=== PATIENT | female | born 1955 | race Hispanic/Latino ===

== ENCOUNTER 2017-07-09 07:13 | Day surgery (SDC) | payer MEDICAID ==
[2017-07-09 08:04] LABS: Basophils % (Auto) 0.5 % (0.0-1.8); Eosinophils % (Auto) 2.3 % (0.0-4.3); Hematocrit 29.9 % (30.3-42.9); Hemoglobin 9.6 gm/dl (10.1-14.3); Mean Corpuscular HGB Conc 32 % (30-34); Platelet Count 219 K/mm3 (140-440); Red Blood Count 4.44 M/mm3 (3.65-5.03); Red Cell Distribution Width 14.2 % (13.2-15.2); White Blood Count 8.6 K/mm3 (4.5-11.0)
[2017-07-09 08:14] LABS: Mean Corpuscular Volume 67 fl (79-97)
[2017-07-09 08:15] LABS: Mean Corpuscular Hemoglobin 22 pg (28-32)
[2017-07-09 08:21] LABS: Partial Thromboplastin Time 37.8 Sec. (24.2-36.6)
[2017-07-09] MEDS ORDERED: VERSED IV ONE ×2 (11:49→13:00)
[2017-07-09] MEDS ORDERED: SUBLIMAZE ONE (11:49)
[2017-07-09] MEDS ORDERED: SUBLIMAZE IV ONE (13:00)
--- NOTE | 2017-07-09 13:23 | Short Stay Summary ---
Short Stay Documentation Date of service: 07/09/17 - History Principal diagnosis: Anemia Past Medical History: hypertension - Allergies and Medications Current Medications: Allergies No Known Allergies Allergy (Verified 03/19/15 10:27) Home Medications Medication Instructions Recorded Confirmed Last Taken Type Albuterol Sulfate [Proventil HFA] 1 - 2 puff IH Q4H PRN 05/19/14 07/09/17 History Ascorbic Acid [Vitamin C] 250 mg PO BID 05/19/14 07/09/17 07/08/17 History Aspirin [Aspirin BABY CHEW TAB] 81 mg PO QDAY 05/19/14 07/09/17 07/08/17 History Ca/D3/Mag Ox/Zinc/Exhibit Electrician/[place]/Bor 2 each PO QDAY 05/19/14 07/09/17 07/08/17 History [Caltrate 600+D Plus Tab Chew] Ferrous Gluconate [Ferrous 325 mg PO BID 05/19/14 07/09/17 07/08/17 History Gluconate 325 MG tab] Fluticasone/Salmeterol [Advair 1 puff IH BID 05/19/14 07/09/17 07/08/17 History Diskus 500-50 mcg] Levothyroxine [Synthroid] 50 mcg PO QAM 05/19/14 07/09/17 07/08/17 History Lisinopril 10 mg PO QDAY 05/19/14 07/09/17 07/08/17 History Loratadine [Claritin] 10 mg PO DAILY 05/19/14 07/09/17 07/08/17 History Montelukast [Singulair] 10 mg PO QPM 05/19/14 07/09/17 07/08/17 History Multivitamin [Multi-Vitamin Daily] 1 each PO QDAY 05/19/14 07/09/17 07/08/17 History Pregabalin [Lyrica] 75 mg PO QDAY 05/19/14 07/09/17 07/08/17 History FLUoxetine HCL [FLUoxetine] 20 mg PO DAILY 03/17/15 07/09/17 07/08/17 History 20mg Nitroglycerin [Nitrostat] 0.4 mg SL PRN PRN 03/17/15 07/09/17 02/17/15 History Omeprazole [PriLOSEC] 40 mg PO QDAY 03/17/15 07/09/17 07/08/17 History cloNIDine [Catapres] 0.1 mg PO BID 07/09/17 07/09/17 07/08/17 History - Physical exam General appearance: no acute distress - Brief post op/procedure progress note Date of procedure: 07/09/17 Pre-op diagnosis: Anemia Post-op diagnosis: same Procedure: Bone marrow bx and aspiration Anesthesia: local Surgeon: MICHELLE CHAPARRO Estimated blood loss: none Specimen disposition: to lab Condition: stable - Disposition Condition at discharge: Good Disposition: [id number] TO HOME OR SELFCARE Short Stay Discharge Plan Follow up with: SHARRI URIBE MD [Primary Care Provider] - 7 Days
[2017-07-09 13:34] VITALS: BP 118/61
--- NOTE | 2017-07-09 13:45 | Cat Scan Report ---
CT-guided bone marrow biopsy and aspiration. History: Anemia. Procedure: The patient was placed in the prone position. The skin surface overlying the right posterior iliac bone was prepped and draped using sterile technique. Local anesthetic was injected into the skin. Using CT guidance, a 13-gauge biopsy device was advanced into the marrow space of the posterior aspect of the right iliac bone. Multiple aspirates and a core biopsy were performed. Adequate tissue was obtained. Intravenous conscious sedation was used. Intraservice time was 30 minutes. Independent cardiorespiratory monitoring was performed by outpatient procedure nurse for 30 minutes, supervised by me. The patient tolerated the procedure well clinically. The patient was sent to the outpatient procedure unit for short-term observation at the end of this procedure. There were no complications.
[2017-07-09 14:05] LABS: Blastocytes % (Manual) 0 %
[2017-07-09 14:06] LABS: Anisocytosis Few; Diff Status Complete; Poikilocytosis Few
== END 2017-07-09 14:05 | disposition home or self-care (01) ==
LOC: CATHLABREC 07:13 → EDSTATUS 07:30 → CATHLABREC 14:05
DX: D64.9 Anemia, unspecified (principal); I10 Essential (primary) hypertension; Z79.82 Long term (current) use of aspirin; Z79.899 Other long term (current) drug therapy; Z79.01 Long term (current) use of anticoagulants
CPT/HCPCS: 36415; 38221; 85007; 85025; 85097; 85610; 85730; 88161; 88305; 88311; 88313; 99152; 99153; G0364; J2250; J3010

== ENCOUNTER 2017-08-18 21:50 | Inpatient (IN) | payer MEDICAID ==
--- NOTE | 2017-08-18 23:46 | Emergency Department Report ---
ED General Adult HPI - General Chief complaint: Chest Pain Stated complaint: LOW B/P Time Seen by Provider: 08/18/17 23:07 Source: patient Mode of arrival: Stretcher Limitations: No Limitations - History of Present Illness Initial comments: 62-year-old female here for evaluation of syncope. She had chest pain a couple days ago off and no chest pain today. She woke up this morning feeling not quite right like she had a bug of some sort. She still had a nap started to feel better when the dinner he had some pizza when she got up after that she felt dizzy when she went to the back door to let her cat in and had a near- syncope or syncopal episode she had no chest pain she was feeling dizzy and she fell and hit her head and neck she is here for evaluation of neck pain no headache no nausea vomiting no chest pain. Status post dizzy spell with fainting -: Gradual Location: head Radiation: non-radiation - Related Data Home Medications Medication Instructions Recorded Confirmed Last Taken Albuterol Sulfate [Proventil HFA] 1 - 2 puff IH Q4H PRN 05/19/14 07/09/17 Ascorbic Acid [Vitamin C] 250 mg PO BID 05/19/14 07/09/17 07/08/17 Aspirin [Aspirin BABY CHEW TAB] 81 mg PO QDAY 05/19/14 07/09/17 07/08/17 Ca/D3/Mag Ox/Zinc/Drop Worker/[place]/Bor 2 each PO QDAY 05/19/14 07/09/17 07/08/17 [Caltrate 600+D Plus Tab Chew] Ferrous Gluconate [Ferrous 325 mg PO BID 05/19/14 07/09/17 07/08/17 Gluconate 325 MG tab] Fluticasone/Salmeterol [Advair 1 puff IH BID 05/19/14 07/09/17 07/08/17 Diskus 500-50 mcg] Levothyroxine [Synthroid] 50 mcg PO QAM 05/19/14 07/09/17 07/08/17 Lisinopril 10 mg PO QDAY 05/19/14 07/09/17 07/08/17 Loratadine [Claritin] 10 mg PO DAILY 05/19/14 07/09/17 07/08/17 Montelukast [Singulair] 10 mg PO QPM 05/19/14 07/09/17 07/08/17 Multivitamin [Multi-Vitamin Daily] 1 each PO QDAY 05/19/14 07/09/17 07/08/17 Pregabalin [Lyrica] 75 mg PO QDAY 05/19/14 07/09/17 07/08/17 FLUoxetine HCL [FLUoxetine] 20 mg PO DAILY 03/17/15 07/09/17 07/08/17 20mg Nitroglycerin [Nitrostat] 0.4 mg SL PRN PRN 03/17/15 07/09/17 02/17/15 Omeprazole [PriLOSEC] 40 mg PO QDAY 03/17/15 07/09/17 07/08/17 cloNIDine [Catapres] 0.1 mg PO BID 07/09/17 07/09/17 07/08/17 Allergies Allergy/AdvReac Type Severity Reaction Status Date / Time No Known Allergies Allergy Verified 03/19/15 10:27 ED Review of Systems ROS: Stated complaint: LOW B/P Other details as noted in HPI Comment: All other systems reviewed and negative Constitutional: denies: diaphoresis, fever, malaise Respiratory: denies: shortness of breath, SOB with exertion, SOB at rest, stridor Cardiovascular: syncope. denies: chest pain, palpitations, orthopnea, edema Gastrointestinal: hematochezia, other (takes iron off and on for anemia). denies: diarrhea Musculoskeletal: denies: joint swelling, arthralgia, myalgia Neurological: denies: weakness, numbness, paresthesias, abnormal gait ED Past Medical Hx - Past Medical History Hx Hypertension: Yes Hx Heart Attack/AMI: No (EF 55%, mild TR and MR) Hx GERD: Yes Hx Liver Disease: No Hx Renal Disease: No Hx Sickle Cell Disease: No Hx Seizures: No Hx Asthma: Yes (inhaler used this AM) - Surgical History Hx Cholecystectomy: Yes Hx Appendectomy: Yes - Social History Smoking Status: Never Smoker Substance Use Type: None - Medications Home Medications: Home Medications Medication Instructions Recorded Confirmed Last Taken Type Albuterol Sulfate [Proventil HFA] 1 - 2 puff IH Q4H PRN 05/19/14 07/09/17 History Ascorbic Acid [Vitamin C] 250 mg PO BID 05/19/14 07/09/17 07/08/17 History Aspirin [Aspirin BABY CHEW TAB] 81 mg PO QDAY 05/19/14 07/09/17 07/08/17 History Ca/D3/Mag Ox/Zinc/Drop Worker/[place]/Bor 2 each PO QDAY 05/19/14 07/09/17 07/08/17 History [Caltrate 600+D Plus Tab Chew] Ferrous Gluconate [Ferrous 325 mg PO BID 05/19/14 07/09/17 07/08/17 History Gluconate 325 MG tab] Fluticasone/Salmeterol [Advair 1 puff IH BID 05/19/14 07/09/17 07/08/17 History Diskus 500-50 mcg] Levothyroxine [Synthroid] 50 mcg PO QAM 05/19/14 07/09/17 07/08/17 History Lisinopril 10 mg PO QDAY 05/19/14 07/09/17 07/08/17 History Loratadine [Claritin] 10 mg PO DAILY 05/19/14 07/09/17 07/08/17 History Montelukast [Singulair] 10 mg PO QPM 05/19/14 07/09/17 07/08/17 History Multivitamin [Multi-Vitamin Daily] 1 each PO QDAY 05/19/14 07/09/17 07/08/17 History Pregabalin [Lyrica] 75 mg PO QDAY 05/19/14 07/09/17 07/08/17 History FLUoxetine HCL [FLUoxetine] 20 mg PO DAILY 03/17/15 07/09/17 07/08/17 History 20mg Nitroglycerin [Nitrostat] 0.4 mg SL PRN PRN 03/17/15 07/09/17 02/17/15 History Omeprazole [PriLOSEC] 40 mg PO QDAY 03/17/15 07/09/17 07/08/17 History cloNIDine [Catapres] 0.1 mg PO BID 07/09/17 07/09/17 07/08/17 History ED Physical Exam - General Limitations: No Limitations General appearance: alert - Head Head exam: Present: normocephalic - Eye Eye exam: Present: normal appearance, PERRL, EOMI - Neck Neck exam: Present: normal inspection, other (paraspinal muscle tenderness question of midline tenderness) - Respiratory Respiratory exam: Present: normal lung sounds bilaterally. Absent: respiratory distress, wheezes, rales, rhonchi, stridor, accessory muscle use - Cardiovascular Cardiovascular Exam: Present: regular rate, normal rhythm, normal heart sounds. Absent: rubs, gallop - GI/Abdominal GI/Abdominal exam: Present: soft. Absent: guarding, rebound, rigid, mass, bruit , pulsatile mass - Rectal Rectal exam: Present: heme (+) stool, other (brownish heme positive stool). Absent: black stool, bloody stool - Extremities Exam Extremities exam: Present: normal inspection, full ROM. Absent: tenderness, pedal edema, joint swelling, calf tenderness - Back Exam Back exam: Present: normal inspection. Absent: tenderness, CVA tenderness (R), CVA tenderness (L), muscle spasm, paraspinal tenderness, vertebral tenderness - Neurological Exam Neurological exam: Present: alert, oriented X3, CN II-XII intact. Absent: motor sensory deficit ED Course Vital Signs 08/18/17 08/18/17 08/18/17 22:57 23:01 23:08 Temperature 98.1 F Pulse Rate 78 Pulse Rate [ Lying] Pulse Rate [ Sitting] Pulse Rate [ Standing] Respiratory 16 Rate Blood Pressure 83/42 [Left] Blood Pressure [Lying] Blood Pressure [Sitting] Blood Pressure [Standing] O2 Sat by Pulse 98 Oximetry 08/19/17 00:26 Temperature Pulse Rate Pulse Rate [ 71 Lying] Pulse Rate [ 71 Sitting] Pulse Rate [ 82 Standing] Respiratory Rate Blood Pressure [Left] Blood Pressure 76/44 [Lying] Blood Pressure 82/49 [Sitting] Blood Pressure 88/43 [Standing] O2 Sat by Pulse Oximetry ED Medical Decision Making - Lab Data Result diagrams: 08/18/17 23:17 08/18/17 23:17 - EKG Data -: EKG Interpreted by Nd EKG shows normal: sinus rhythm, ST-T waves (no acute ischemic change) - EKG Data Interpretation: no acute changes, unchanged when compared t - Radiology Data Radiology results: report reviewed CT had chronic change CT C-spine chronic change chest x-ray no acute process per radiology - Medical Decision Making Patient was mildly orthostatic blood pressure was slightly hypotensive. The rectal exam did show heme positive stool. She has been dizzy with standing and did have a syncopal or near-syncopal spell with a low H&H worrisome for GI bleed. She has a history of antral ulcer disease and Dewey's esophagus. I did discuss the case with Dr. Hood we will evaluate for admitted for further evaluation of syncope and possible GI bleed. Patient has no evidence of trauma and has been cleared on cervical and cranial trauma. EKG showed no evidence ischemia or abnormal rhtyhm, pt stable for admit. Critical care attestation.: If time is entered above; I have spent that time in minutes in the direct care of this critically ill patient, excluding procedure time. ED Disposition Clinical Impression: Iron deficiency anemia due to chronic blood loss, Syncope Disposition: OP ADMIT IP TO THIS HOSP Is pt being admited?: Yes Condition: Stable Instructions: Syncope (ED) Time of Disposition: 01:15
[2017-08-18] MEDS ORDERED: NACL 0.9% 500 ML 500 ML IV ONE (23:48)
[2017-08-19 00:09] LABS: Basophils % (Auto) 0.2 % (0.0-1.8); Eosinophils % (Auto) 1.1 % (0.0-4.3); Hematocrit 24.1 % (30.3-42.9); Hemoglobin 7.2 gm/dl (10.1-14.3); Mean Corpuscular HGB Conc 30 % (30-34); Platelet Count 202 K/mm3 (140-440); Red Blood Count 3.54 M/mm3 (3.65-5.03); Red Cell Distribution Width 14.7 % (13.2-15.2); White Blood Count 18.3 K/mm3 (4.5-11.0)
[2017-08-19 00:13] LABS: Mean Corpuscular Hemoglobin 21 pg (28-32); Mean Corpuscular Volume 68 fl (79-97)
[2017-08-19 00:23] LABS: Anion Gap 18 mmol/L; BUN/Creatinine Ratio 41; Blood Urea Nitrogen 69 mg/dL (7-17); Calcium 8.7 mg/dL (8.4-10.2); Carbon Dioxide 22 mmol/L (22-30); Chloride 98.6 mmol/L (98-107); Glucose 103 mg/dL (65-100); Sodium 135 mmol/L (137-145)
--- NOTE | 2017-08-19 00:26 | XRay Report ---
FINAL REPORT EXAM: XR CHEST ROUTINE 2V HISTORY: chest pain TECHNIQUE: PA and lateral views of the chest were obtained. FINDINGS: The heart size and mediastinum appear normal. The lungs are clear. Pleural fluid is not seen. The bones and soft tissues do not show any acute changes. IMPRESSION: No active chest disease.
[2017-08-19 00:35] LABS: Bacteria,Urine 1+ /HPF (Negative); Bilirubin,Urine NEG (Negative); Blood,Urine NEG (Negative); Ketones,Urine NEG (Negative); Leukocyte Esterase,Urine NEG (Negative); Nitrite,Urine NEG (Negative); Protein,Urine <15 mg/dL mg/dL (Negative); Urobilinogen,Urine < 2.0 mg/dL (<2.0)
--- NOTE | 2017-08-19 00:48 | Cat Scan Report ---
FINAL REPORT EXAM: CT HEAD/BRAIN WO CON HISTORY: syncope TECHNIQUE: Routine axial imaging was obtained of the brain without IV contrast. FINDINGS: There is mild generalized atrophy. There is no evidence of acute stroke or hemorrhage. The ventricular system is appropriate in size and is symmetric. The basal cisterns appear normal. The visualized sinuses are clear. The mastoid air cells are well pneumatized IMPRESSION: Mild generalized volume loss. No evidence of acute stroke or hemorrhage.
--- NOTE | 2017-08-19 01:01 | Cat Scan Report ---
FINAL REPORT EXAM: CT CERVICAL SPINE WO CON HISTORY: neck pain FALL TECHNIQUE: Routine axial imaging was obtained of the cervical spine without IV contrast with sagittal and coronal reconstructions. FINDINGS: There is mild narrowing of the C3-C4 and C6-C7 disc. The overall alignment is normal. The canal size is normal. There is left-sided facet arthropathy changes in the upper cervical spine. There is no evidence of fracture. The pre vertebral soft tissues appear intact. C1-C2 articulation real is a arthritic changes. IMPRESSION: Multilevel arthritic changes noted. No acute injury.
[2017-08-19] MEDS ORDERED: PROTONIX IV ONE (01:16)
--- NOTE | 2017-08-19 03:55 | History and Physical Report ---
History of Present Illness Date of examination: 08/19/17 Date of admission: 08/19/2017 Chief complaint: chief complaint: Passed out in the morning. History of present illness: History of present illness:62-year-old female with multiple medical problems including COPD, high blood pressure ,hypothyroidism ,peripheral neuropathy , depression and gastroesophageal reflux disease comes in for passing out in the morning.She was feeling dizzy. While she was opening the door this morning she felt dizzy and passed out. She fell and hit her head and neck. Has been having neck pain since am. No nausea no vomiting. Had chest pain for the last 2 days. Intermittent in nature.nonradiating. Not associated with diaphoresis and palpitations or shortness of breath. No exacerbating or relieving factors. Review of System: Constitutional: no fever, no chills, no weight loss Ears, eyes, nose, mouth and throat: no nasal congestion, no nasal discharge, no sinus pressure, no vision change, no red eye. Neck: No neck pain or rigidity. Cardiovascular: No chest pain, no orthopnea, no palpitations, no leg swelling Respiratory: No shortness of breath, no cough, no congestion, no wheezing Gastrointestinal: no abdominal pain, no nausea, no vomiting Genitourinary : no dysuria, no hematuria Musculoskeletal: no joint swelling or muscle ache Integumentary: no rash, no pruritis Neurological:syncope Endocrine: no cold or heat intolerance, no polyuria or polydipsia Hematologic/Lymphatic: no easy bruising, no easy bleeding, no gland swelling Allergic/Immunologic: no urticaria, no angioedema. Past History Past Medical History: anemia, COPD, hypertension, hyperlipidemia, hypothyroidism , other (peripheral neuropathy) Past Surgical History: appendectomy, cholecystectomy Social history: no significant social history, lives with family, full code Family history: hypertension Medications and Allergies Allergies Allergy/AdvReac Type Severity Reaction Status Date / Time No Known Allergies Allergy Verified 03/19/15 10:27 Home Medications Medication Instructions Recorded Confirmed Last Taken Type Albuterol Sulfate [Proventil HFA] 1 - 2 puff IH Q4H PRN 05/19/14 07/09/17 History Ascorbic Acid [Vitamin C] 250 mg PO BID 05/19/14 07/09/17 07/08/17 History Aspirin [Aspirin BABY CHEW TAB] 81 mg PO QDAY 0907/09/17 07/08/17 History Ca/D3/Mag Ox/Zinc/Cat And Dog Bather/Shaquille/Bor 2 each PO QDAY 05/19/14 07/09/17 07/08/17 History [Caltrate 600+D Plus Tab Chew] Ferrous Gluconate [Ferrous 325 mg PO BID 05/19/14 07/09/17 07/08/17 History Gluconate 325 MG tab] Fluticasone/Salmeterol [Advair 1 puff IH BID 05/19/14 07/09/17 07/08/17 History Diskus 500-50 mcg] Levothyroxine [Synthroid] 50 mcg PO QAM 05/19/14 07/09/17 07/08/17 History Lisinopril 10 mg PO QDAY 05/19/14 07/09/17 07/08/17 History Loratadine [Claritin] 10 mg PO DAILY 05/19/14 07/09/17 07/08/17 History Montelukast [Singulair] 10 mg PO QPM 05/19/14 07/09/17 07/08/17 History Multivitamin [Multi-Vitamin Daily] 1 each PO QDAY 05/19/14 07/09/17 07/08/17 History Pregabalin [Lyrica] 75 mg PO QDAY 05/19/14 07/09/17 07/08/17 History FLUoxetine HCL [FLUoxetine] 20 mg PO DAILY 03/17/15 07/09/17 07/08/17 History 20mg Nitroglycerin [Nitrostat] 0.4 mg SL PRN PRN 03/17/15 07/09/17 02/17/15 History Omeprazole [PriLOSEC] 40 mg PO QDAY 03/17/15 07/09/17 07/08/17 History cloNIDine [Catapres] 0.1 mg PO BID 07/09/17 07/09/17 07/08/17 History Exam - Constitutional Vitals: Temp Pulse Resp BP Pulse Ox 98.1 F 71 16 76/44 98 08/18/17 22:57 08/19/17 00:26 08/18/17 23:01 08/19/17 00:26 08/18/17 23:01 General appearance: Present: no acute distress, well-nourished - EENT Eyes: Present: PERRL ENT: hearing intact, clear oral mucosa - Neck Neck: Present: supple, normal ROM - Respiratory Respiratory effort: normal Respiratory: bilateral: CTA - Cardiovascular Heart rate: 73 Rhythm: regular (80/m) Heart Sounds: Present: S1 & S2. Absent: rub, click - Extremities Extremities: no ischemia, pulses intact, pulses symmetrical, No edema Extremity abnormal: other Peripheral Pulses: within normal limits - Abdominal General gastrointestinal: Present: soft, non-tender, non-distended, normal bowel sounds Female genitourinary: Present: normal - Rectal Rectal Exam: stool brown - Integumentary Integumentary: Present: clear, warm, dry - Musculoskeletal Musculoskeletal: gait normal, strength equal bilaterally - Psychiatric Psychiatric: appropriate mood/affect, intact judgment & insight - Neurologic Neurologic: CNII-XII intact, moves all extremities - Allied Health Allied health notes reviewed: nursing, case management Results - Labs CBC & Chem 7: 08/18/17 23:17 08/18/17 23:17 Labs: Laboratory Last Values WBC 18.3 K/mm3 (4.5-11.0) H 08/18/17 23:17 RBC 3.54 M/mm3 (3.65-5.03) L 08/18/17 23:17 Hgb 7.2 gm/dl (10.1-14.3) L 08/18/17 23:17 Hct 24.1 % (30.3-42.9) L 08/18/17 23:17 MCV 68 fl (79-97) L 08/18/17 23:17 MCH 21 pg (28-32) L 08/18/17 23:17 MCHC 30 % (30-34) 08/18/17 23:17 RDW 14.7 % (13.2-15.2) 08/18/17 23:17 Plt Count 202 K/mm3 (140-440) 08/18/17 23:17 Lymph % (Auto) 7.0 % (13.4-35.0) L 08/18/17 23:17 [place] % (Auto) 8.7 % (0.0-7.3) H 08/18/17 23:17 Eos % (Auto) 1.1 % (0.0-4.3) 08/18/17 23:17 Baso % (Auto) 0.2 % (0.0-1.8) 08/18/17 23:17 Lymph # 1.3 K/mm3 (1.2-5.4) 08/18/17 23:17 [place] # 1.6 K/mm3 (0.0-0.8) H 08/18/17 23:17 Eos # 0.2 K/mm3 (0.0-0.4) 08/18/17 23:17 Baso # 0.0 K/mm3 (0.0-0.1) 08/18/17 23:17 Seg Neutrophils % 83.0 % (40.0-70.0) H 08/18/17 23:17 Seg Neutrophils # 15.2 K/mm3 (1.8-7.7) H 08/18/17 23:17 Sodium 135 mmol/L (137-145) L 08/18/17 23:17 Potassium 4.0 mmol/L (3.6-5.0) 08/18/17 23:17 Chloride 98.6 mmol/L (98-107) 08/18/17 23:17 Carbon Dioxide 22 mmol/L (22-30) 08/18/17 23:17 Anion Gap 18 mmol/L 08/18/17 23:17 BUN 69 mg/dL (7-17) H 08/18/17 23:17 Creatinine 1.7 mg/dL (0.7-1.2) H 08/18/17 23:17 Estimated GFR 31 ml/min 08/18/17 23:17 BUN/Creatinine Ratio 41 % 08/18/17 23:17 Glucose 103 mg/dL (65-100) H 08/18/17 23:17 Calcium 8.7 mg/dL (8.4-10.2) 08/18/17 23:17 Troponin T < 0.010 ng/mL (0.00-0.029) 08/19/17 01:32 Urine Color Yellow (Yellow) 08/18/17 Unknown Urine Turbidity Clear (Clear) 08/18/17 Unknown Urine pH 5.0 (5.0-7.0) 08/18/17 Unknown Ur Specific [place] 1.016 (1.003-1.030) 08/18/17 Unknown Urine Protein <15 mg/dl mg/dL (Negative) 08/18/17 Unknown Urine Glucose (UA) Neg mg/dL (Negative) 08/18/17 Unknown Urine Ketones Neg mg/dL (Negative) 08/18/17 Unknown Urine Blood Neg (Negative) 08/18/17 Unknown Urine Nitrite Neg (Negative) 08/18/17 Unknown Urine Bilirubin Neg (Negative) 08/18/17 Unknown Urine Urobilinogen < 2.0 mg/dL (<2.0) 08/18/17 Unknown Ur Leukocyte Esterase Neg (Negative) 08/18/17 Unknown Urine WBC (Auto) 2.0 /HPF (0.0-6.0) 08/18/17 Unknown Urine RBC (Auto) 6.0 /HPF (0.0-6.0) 08/18/17 Unknown Urine Bacteria (Auto) 1+ /HPF (Negative) 08/18/17 Unknown Blood Type O POSITIVE 08/19/17 01:03 Antibody Screen Negative 08/19/17 01:03 Short CBC 08/18/17 Range/Units 23:17 WBC 18.3 H (4.5-11.0) K/mm3 Hgb 7.2 L (10.1-14.3) gm/dl Hct 24.1 L (30.3-42.9) % Plt Count 202 (140-440) K/mm3 BMP 08/18/17 23:17 Sodium 135 L Potassium 4.0 Chloride 98.6 Carbon Dioxide 22 BUN 69 H Creatinine 1.7 H Glucose 103 H Calcium 8.7 Cardiac Enzymes 08/18/17 08/19/17 Range/Units 23:17 01:32 Troponin T < 0.010 < 0.010 (0.00-0.029) ng/mL Urine 08/18/17 Range/Units Unknown Urine Color Yellow (Yellow) Urine pH 5.0 (5.0-7.0) Ur Specific [place] 1.016 (1.003-1.030) Urine Protein <15 mg/dl (Negative) mg/dL Urine Glucose (UA) Neg (Negative) mg/dL - Imaging and Cardiology EKG: report reviewed (normal sinus rhythm heart rate of 73 per minute abnormal R wave progression. EKG interpreted by me) Chest x-ray: report reviewed (no active findings) Imaging and Cardiology: CT of the C-spine degenerative disc disease present no fractures. Assessment and Plan Advance Directives: Yes (full code) VTE prophylaxis?: Chemical Plan of care discussed with patient/family: Yes - Patient Problems (1) Syncope and collapse Current Visit: Yes Status: Acute Plan to address problem: patient was dizzy and passed out in the morning. No diaphoresis no shortness of breath. Had intermittent chest pain for the last 2 days. We will do workup for syncope including Lexiscan echocardiogram and carotid duplex scan. (2) Chest pain Current Visit: Yes Status: Acute Qualifiers: Chest pain type: unspecified Qualified Code(s): R07.9 - Chest pain, unspecified Plan to address problem: we will do workup for chest pain in the form of serial cardiac enzyme and Lexiscan. Costochondritis and reflux esophagitis are in the differential diagnosis. Costochondritis unlikely because there is no chest wall pain. (3) Hypertension Current Visit: Yes Status: Chronic Qualifiers: Hypertension type: essential hypertension Qualified Code(s): I10 - Essential (primary) hypertension Plan to address problem: patient to continue on Coreg , hydralazine ,lisinopril and clonidine. (4) Anemia Current Visit: Yes Status: Chronic Qualifiers: Anemia type: iron deficiency Plan to address problem: Secondary to iron deficiency anemia. We will check iron levels and B12 and folic acid levels.Iron supplements to be continued. (5) Asthma Current Visit: Yes Status: Chronic Qualifiers: Asthma severity: mild Plan to address problem: continue Singulair Advair and albuterol 2 puffs 4 times a day when necessary (6) Hypothyroidism Current Visit: Yes Status: Chronic Qualifiers: Hypothyroidism type: acquired Qualified Code(s): E03.9 - Hypothyroidism, unspecified Plan to address problem: continue Synthroid at 50 g once a day. Check TSH. (7) Gastroesophageal reflux disease Current Visit: Yes Status: Chronic Qualifiers: Esophagitis presence: without esophagitis Qualified Code(s): K21.9 - Gastro -esophageal reflux disease without esophagitis Plan to address problem: continue omeprazole or equivalent (8) Peripheral neuropathy Current Visit: Yes Status: Chronic Qualifiers: Peripheral neuropathy type: polyneuropathy, unspecified Qualified Code(s): G62.9 - Polyneuropathy, unspecified Plan to address problem: continue Lyrica 75 mg once a day. (9) DVT prophylaxis Current Visit: Yes Status: Acute Plan to address problem: patient on Lovenox 40 mg subcutaneous dailyalso GI prophylaxis in the form of omeprazole or equivalent.
[2017-08-19] MEDS ORDERED: NITROSTAT SL PRN (03:57)
[2017-08-19] MEDS ORDERED: PROAIR IH PRN (03:57)
[2017-08-19] MEDS ORDERED: TYLENOL PO PRN (04:02)
[2017-08-19] MEDS ORDERED: MILK OF MAGNESIA PO PRN (04:02)
[2017-08-19] MEDS ORDERED: DULCOLAX PR PRN (04:02)
[2017-08-19] MEDS ORDERED: ZOFRAN IV PRN (04:02)
[2017-08-19] MEDS ORDERED: MORPHINE IV PRN (04:05)
[2017-08-19] MEDS ORDERED: PERCOCET 5/325 PO PRN (04:05)
[2017-08-19] MEDS ORDERED: PROVENTIL IH PRN (04:17)
[2017-08-19] MEDS ORDERED: NACL 0.9% 1000 ML 1,000 ML IV SCH (05:00)
[2017-08-19 05:29] LABS: Iron 21 ug/dL (37-170); Total Iron Binding Capacity 145 mcg/dL (250-450)
[2017-08-19] MEDS: SYNTHROID PO SCH (07:28)
[2017-08-19] MEDS ORDERED: PNEUMOVAX 23 IM ONE (07:58)
[2017-08-19] MEDS ORDERED: LEXISCAN IV ONE ×2 (08:18→08:24)
--- NOTE | 2017-08-19 09:12 | Event Note ---
Date: 08/19/17 The patient was admitted early this morning. We will continue the orders/plan as outlined in H&P. Patient with renal insufficiency. We will also add renal ultrasound and consider nephrology consultation
[2017-08-19] MEDS ORDERED: NON-FORMULARY (Fluoxetine Hcl [Fluoxetine] 20 MG) PO SCH (10:00)
[2017-08-19] MEDS ORDERED: FERROUS GLUCONATE 325 MG PO SCH (10:00)
[2017-08-19] MEDS ORDERED: CLARITIN PO SCH (10:00)
[2017-08-19] MEDS ORDERED: NON-FORMULARY (Omeprazole [Prilosec] 40 MG) PO SCH (10:00)
[2017-08-19] MEDS ORDERED: VANCOMYCIN PHARMACY TO DOSE IV SCH (10:00)
[2017-08-19] MEDS ORDERED: NON-FORMULARY (Fluticasone/Salmeterol [Advair Diskus 500-50 Mcg] 1 PUFF) IH SCH (10:00)
[2017-08-19] MEDS ORDERED: LYRICA PO SCH (10:00)
[2017-08-19] MEDS ORDERED: NON-FORMULARY (Multivitamin [Multi-Vitamin Daily] 1 EACH) PO SCH (10:00)
--- NOTE | 2017-08-19 10:01 | Event Note ---
Date: 08/19/17 Echocardiogram and stress was reviewed Both were unremarkable In charge nurse informed
--- NOTE | 2017-08-19 10:55 | Ultrasound Report ---
Renal sonogram: History: ARF Findings: Right kidney 10.7 x 4.9 x 4.5 cm. Cortical thickness 2.9 cm. Left kidney 10.9 x 5.4 x 4.6 cm. Cortical thickness 1.2 cm. No mass. No hydronephrosis. Impression: Essentially negative renal sonogram.
[2017-08-19] MEDS: PULMICORT IH SCH ×2 (10:57→20:31)
[2017-08-19] MEDS: BROVANA NEBU IH SCH ×2 (10:58→20:31)
[2017-08-19] MEDS: PROzac PO SCH (11:34)
[2017-08-19] MEDS: THERAGRAN Tab PO SCH (11:34)
[2017-08-19] MEDS: LOVENOX SUB-Q SCH (11:34)
[2017-08-19] MEDS: PROTONIX PO SCH (11:35)
[2017-08-19] MEDS: BABY ASPIRIN PO SCH (11:36)
[2017-08-19] MEDS ORDERED: VANCOMYCIN 1,250 MG in NACL 0.9% 250ML 250 ML IV ONE (11:45)
--- NOTE | 2017-08-19 13:28 | Treadmill Report ---
MYOCARDIAL PERFUSION SCAN REPORT PROCEDURE IN DETAIL: Myocardial perfusion scan was done using the standard Lexiscan protocol. Rest and stress images were reviewed. Gated analysis and LV function assessment was done. FINDINGS: Homogenous uptake of tracer noted in the rest and stress images. Comparison of the rest and stress images reveal no fixed or reversible defect suggestive of ischemia or infarction. Gated analysis reveals normal wall motion. LVEF 71%. IMPRESSION: 1. Normal myocardial perfusion scan. 2. Preserved left ventricular systolic function. 3. This is a low risk cardiac study with the expected cardiac mortality less than 1%. JOB# [id number] RR/NTS
[2017-08-19] MEDS: VITAMIN C PO SCH (16:21)
[2017-08-19] MEDS: FERGON PO SCH (16:22)
[2017-08-19] MEDS: CATAPRES PO SCH ×2 (16:23→21:15)
[2017-08-19] MEDS: ZOSYN/NS 3.375GM/50ML 3.375 GM/50 ML BAG IV SCH ×2 (16:23→21:17)
[2017-08-19] MEDS: ZESTRIL PO SCH (17:44)
[2017-08-19] MEDS: SINGULAIR PO SCH (21:16)
[2017-08-19] MEDS: LYRICA PO SCH (21:16)
[2017-08-19] MEDS: CLARITIN PO SCH (21:16)
[2017-08-19] MEDS: AMBIEN PO PRN (21:17)
[2017-08-19] MEDS ORDERED: NACL 0.9% 250ML 250 ML ONE (21:30)
[2017-08-20 05:32] LABS: Basophils % (Auto) 0.5 % (0.0-1.8); Eosinophils % (Auto) 2.8 % (0.0-4.3); Hematocrit 23.2 % (30.3-42.9); Hemoglobin 7.3 gm/dl (10.1-14.3); Mean Corpuscular HGB Conc 31 % (30-34); Mean Corpuscular Hemoglobin 21 pg (28-32); Mean Corpuscular Volume 67 fl (79-97); Platelet Count 190 K/mm3 (140-440); Red Blood Count 3.47 M/mm3 (3.65-5.03); Red Cell Distribution Width 14.8 % (13.2-15.2); White Blood Count 8.9 K/mm3 (4.5-11.0)
[2017-08-20 05:56] LABS: Alanine Aminotransferase 19 units/L (7-56); Albumin 2.9 g/dL (3.9-5); Alkaline Phosphatase 76 units/L (35-129); Anion Gap 17 mmol/L; BUN/Creatinine Ratio 30; Blood Urea Nitrogen 24 mg/dL (7-17); Calcium 7.9 mg/dL (8.4-10.2); Carbon Dioxide 24 mmol/L (22-30); Chloride 107.5 mmol/L (98-107); Glucose 97 mg/dL (65-100); Potassium 3.7 mmol/L (3.6-5.0); Sodium 145 mmol/L (137-145); Total Protein 5.9 g/dL (6.3-8.2)
[2017-08-20] MEDS ORDERED: NACL 0.9% 250ML 250 ML IV ONE (06:18)
[2017-08-20] MEDS: SYNTHROID PO SCH (06:20)
[2017-08-20] MEDS: ZOSYN/NS 3.375GM/50ML 3.375 GM/50 ML BAG IV SCH (06:23)
[2017-08-20] MEDS: PULMICORT IH SCH ×2 (07:13→20:20)
[2017-08-20] MEDS: BROVANA NEBU IH SCH ×2 (07:13→20:20)
--- NOTE | 2017-08-20 09:53 | Progress Note ---
Assessment and Plan Assessment and plan: Syncope. Echocardiogram found to be negative. Carotid Doppler revealed 50-79% stenosis bilaterally. Chest pain. Resolved. Echocardiogram stress thallium was found to be negative. Etiology likely secondary to GERD. Acute renal failure. Etiology secondary to vasomotor nephropathy. Renal ultrasound is negative. Creatinine has normalized after IV fluid hydration. Hypertension. Continue current antihypertensive medications. Anemia. Given that the patient was symptomatic with syncope, we will transfuse 1 unit PRBCs Asthma. Continue Singulair, Advair and albuterol. Hypothyroidism. Continue Synthroid daily. GERD. Continue PPI. Peripheral neuropathy. Continue Lyrica 75 mg daily. Disposition. Anticipate discharge in a.m. History Interval history: no new issues overnight Hospitalist Physical - Constitutional Vitals: Temp Pulse Resp BP Pulse Ox 98.3 F 80 18 140/62 99 08/20/17 07:31 08/20/17 07:31 08/20/17 07:31 08/20/17 07:31 08/20/17 07:31 General appearance: Present: no acute distress, well-nourished - EENT Eyes: Present: PERRL, EOM intact ENT: hearing intact, clear oral mucosa, dentition normal - Neck Neck: Present: supple, normal ROM - Respiratory Respiratory effort: normal Respiratory: bilateral: CTA - Cardiovascular Rhythm: regular Heart Sounds: Present: S1 & S2. Absent: gallop, rub - Extremities Extremities: no ischemia, No edema, Full ROM - Abdominal General gastrointestinal: soft, non-tender, non-distended, normal bowel sounds - Integumentary Integumentary: Present: clear, warm, dry - Neurologic Neurologic: CNII-XII intact, moves all extremities Results - Labs CBC & Chem 7: 08/20/17 04:21 08/20/17 04:21 Labs: Laboratory Last Values WBC 8.9 K/mm3 (4.5-11.0) 08/20/17 04:21 RBC 3.47 M/mm3 (3.65-5.03) L 08/20/17 04:21 Hgb 7.3 gm/dl (10.1-14.3) L 08/20/17 04:21 Hct 23.2 % (30.3-42.9) L 08/20/17 04:21 MCV 67 fl (79-97) L 08/20/17 04:21 MCH 21 pg (28-32) L 08/20/17 04:21 MCHC 31 % (30-34) 08/20/17 04:21 RDW 14.8 % (13.2-15.2) 08/20/17 04:21 Plt Count 190 K/mm3 (140-440) 08/20/17 04:21 Lymph % (Auto) 15.9 % (13.4-35.0) 08/20/17 04:21 [place] % (Auto) 12.8 % (0.0-7.3) H 08/20/17 04:21 Eos % (Auto) 2.8 % (0.0-4.3) 08/20/17 04:21 Baso % (Auto) 0.5 % (0.0-1.8) 08/20/17 04:21 Lymph # 1.4 K/mm3 (1.2-5.4) 08/20/17 04:21 [place] # 1.1 K/mm3 (0.0-0.8) H 08/20/17 04:21 Eos # 0.3 K/mm3 (0.0-0.4) 08/20/17 04:21 Baso # 0.0 K/mm3 (0.0-0.1) 08/20/17 04:21 Seg Neutrophils % 68.0 % (40.0-70.0) 08/20/17 04:21 Seg Neutrophils # 6.1 K/mm3 (1.8-7.7) 08/20/17 04:21 Sodium 145 mmol/L (137-145) D 08/20/17 04:21 Potassium 3.7 mmol/L (3.6-5.0) 08/20/17 04:21 Chloride 107.5 mmol/L (98-107) H 08/20/17 04:21 Carbon Dioxide 24 mmol/L (22-30) 08/20/17 04:21 Anion Gap 17 mmol/L 08/20/17 04:21 BUN 24 mg/dL (7-17) H 08/20/17 04:21 Creatinine 0.8 mg/dL (0.7-1.2) D 08/20/17 04:21 Estimated GFR > 60 ml/min 08/20/17 04:21 BUN/Creatinine Ratio 30 % 08/20/17 04:21 Glucose 97 mg/dL (65-100) 08/20/17 04:21 Calcium 7.9 mg/dL (8.4-10.2) L 08/20/17 04:21 Iron 21 ug/dL (37-170) L 08/19/17 04:43 TIBC 150 mcg/dL (250-450) L 08/19/17 04:43 % Saturation 14.00 % 08/19/17 04:43 Transferrin 135 mg/dl (192-382) L 08/19/17 04:43 Total Bilirubin 0.70 mg/dL (0.1-1.2) 08/20/17 04:21 AST 22 units/L (5-40) 08/20/17 04:21 ALT 19 units/L (7-56) 08/20/17 04:21 Alkaline Phosphatase 76 units/L (35-129) 08/20/17 04:21 Troponin T < 0.010 ng/mL (0.00-0.029) 08/19/17 04:43 Total Protein 5.9 g/dL (6.3-8.2) L 08/20/17 04:21 Albumin 2.9 g/dL (3.9-5) L 08/20/17 04:21 Albumin/Globulin Ratio 1.0 % 08/20/17 04:21 Urine Color Yellow (Yellow) 08/18/17 Unknown Urine Turbidity Clear (Clear) 08/18/17 Unknown Urine pH 5.0 (5.0-7.0) 08/18/17 Unknown Ur Specific [place] 1.016 (1.003-1.030) 08/18/17 Unknown Urine Protein <15 mg/dl mg/dL (Negative) 08/18/17 Unknown Urine Glucose (UA) Neg mg/dL (Negative) 08/18/17 Unknown Urine Ketones Neg mg/dL (Negative) 08/18/17 Unknown Urine Blood Neg (Negative) 08/18/17 Unknown Urine Nitrite Neg (Negative) 08/18/17 Unknown Urine Bilirubin Neg (Negative) 08/18/17 Unknown Urine Urobilinogen < 2.0 mg/dL (<2.0) 08/18/17 Unknown Ur Leukocyte Esterase Neg (Negative) 08/18/17 Unknown Urine WBC (Auto) 2.0 /HPF (0.0-6.0) 08/18/17 Unknown Urine RBC (Auto) 6.0 /HPF (0.0-6.0) 08/18/17 Unknown Urine Bacteria (Auto) 1+ /HPF (Negative) 08/18/17 Unknown Blood Type O POSITIVE 08/19/17 01:03 Antibody Screen Negative 08/19/17 01:03
[2017-08-20] MEDS ORDERED: NACL 0.9% 500 ML 500 ML IV ONE ×2 (09:54→15:00)
[2017-08-20] MEDS: ZESTRIL PO SCH (09:59)
[2017-08-20] MEDS: BABY ASPIRIN PO SCH (09:59)
[2017-08-20] MEDS: THERAGRAN Tab PO SCH (09:59)
[2017-08-20] MEDS: PROzac PO SCH (10:00)
[2017-08-20] MEDS: VITAMIN C PO SCH ×3 (10:00→21:35)
[2017-08-20] MEDS: CATAPRES PO SCH ×2 (10:00→21:35)
[2017-08-20] MEDS: PROTONIX PO SCH (10:00)
[2017-08-20] MEDS: LOVENOX SUB-Q SCH (10:01)
[2017-08-20] MEDS: FERGON PO SCH (10:44)
[2017-08-20] MEDS: VANCOMYCIN/NS 1 GM/250 ML 1 GM/250 ML BAG IV SCH (12:27)
[2017-08-20] MEDS: ZOSYN/NS 4.5GM/100ML 4.5 GM/100 ML VIAL IV SCH ×2 (13:27→21:36)
[2017-08-20] MEDS: CLARITIN PO SCH (21:35)
[2017-08-20] MEDS: SINGULAIR PO SCH (21:35)
[2017-08-20] MEDS: AMBIEN PO PRN (21:35)
[2017-08-20] MEDS: LYRICA PO SCH (21:36)
[2017-08-21] MEDS: SYNTHROID PO SCH (05:19)
[2017-08-21] MEDS: ZOSYN/NS 4.5GM/100ML 4.5 GM/100 ML VIAL IV SCH (05:19)
[2017-08-21 05:55] LABS: Basophils % (Auto) 0.7 % (0.0-1.8); Eosinophils % (Auto) 2.8 % (0.0-4.3); Hematocrit 29.3 % (30.3-42.9); Hemoglobin 9.4 gm/dl (10.1-14.3); Mean Corpuscular HGB Conc 32 % (30-34); Platelet Count 209 K/mm3 (140-440); Red Blood Count 4.29 M/mm3 (3.65-5.03); Red Cell Distribution Width 16.1 % (13.2-15.2); White Blood Count 6.8 K/mm3 (4.5-11.0)
[2017-08-21 07:06] LABS: Mean Corpuscular Hemoglobin 22 pg (28-32); Mean Corpuscular Volume 68 fl (79-97)
[2017-08-21] MEDS: PULMICORT IH SCH (08:28)
[2017-08-21] MEDS: BROVANA NEBU IH SCH (08:28)
[2017-08-21] MEDS: PROzac PO SCH (09:30)
[2017-08-21] MEDS: PROTONIX PO SCH (09:30)
[2017-08-21] MEDS: CATAPRES PO SCH (09:30)
[2017-08-21] MEDS: VITAMIN C PO SCH (09:30)
[2017-08-21] MEDS: THERAGRAN Tab PO SCH (09:31)
[2017-08-21] MEDS: BABY ASPIRIN PO SCH (09:31)
[2017-08-21] MEDS: FERGON PO SCH (09:31)
[2017-08-21] MEDS: LOVENOX SUB-Q SCH (09:31)
[2017-08-21] MEDS: ZESTRIL PO SCH (09:31)
--- NOTE | 2017-08-21 09:44 | History and Physical Report ---
History of Present Illness Date of admission: 08/19/17 04:02 Past History Past Medical History: anemia, COPD, hypertension, hyperlipidemia, hypothyroidism , other (peripheral neuropathy) Past Surgical History: appendectomy, cholecystectomy Social history: no significant social history, lives with family, full code Family history: hypertension Medications and Allergies Allergies Allergy/AdvReac Type Severity Reaction Status Date / Time No Known Allergies Allergy Verified 03/19/15 10:27 Home Medications Medication Instructions Recorded Confirmed Last Taken Type Albuterol Sulfate [Proventil HFA] 1 - 2 puff IH Q4H PRN 05/19/14 08/19/17 History Ascorbic Acid [Vitamin C] 250 mg PO BID 05/19/14 08/19/17 07/08/17 History Aspirin [Aspirin BABY CHEW TAB] 81 mg PO QDAY 05/19/14 08/19/17 07/08/17 History Ca/D3/Mag Ox/Zinc/Academic Interventionist/[place]/Bor 2 each PO QDAY 05/19/14 08/19/17 07/08/17 History [Caltrate 600+D Plus Tab Chew] Fluticasone/Salmeterol [Advair 1 puff IH BID 05/19/14 08/19/17 07/08/17 History Diskus 500-50 mcg] Levothyroxine [Synthroid] 50 mcg PO QAM 05/19/14 08/19/17 07/08/17 History Lisinopril 10 mg PO QDAY 05/19/14 08/19/17 07/08/17 History Loratadine [Claritin] 10 mg PO DAILY 05/19/14 08/19/17 07/08/17 History Montelukast [Singulair] 10 mg PO QPM 05/19/14 08/19/17 07/08/17 History Multivitamin [Multi-Vitamin Daily] 1 each PO QDAY 05/19/14 08/19/17 07/08/17 History Pregabalin [Lyrica] 75 mg PO QDAY 05/19/14 08/19/17 07/08/17 History FLUoxetine HCL [FLUoxetine] 20 mg PO DAILY 03/17/15 08/19/17 07/08/17 History 20mg Nitroglycerin [Nitrostat] 0.4 mg SL PRN PRN 03/17/15 08/19/17 02/17/15 History Omeprazole [PriLOSEC] 40 mg PO QDAY 03/17/15 08/19/17 07/08/17 History cloNIDine [Catapres] 0.1 mg PO BID 07/09/17 08/19/17 07/08/17 History Active Meds: Active Medications Acetaminophen (Tylenol) 650 mg PO Q4H PRN PRN Reason: Pain MILD(1-3)/Fever >100.5/DOBBS Albuterol (Proventil) 2.5 mg IH Q4HRT PRN PRN Reason: Wheezing Arformoterol Tartrate (Brovana Nebu) 15 mcg IH Q12HRT [facility] Last Admin: 08/21/17 08:28 Dose: 15 mcg Ascorbic Acid (Vitamin C) 250 mg PO BID [facility] Last Admin: 08/21/17 09:30 Dose: 250 mg Aspirin (Baby Aspirin) 81 mg PO QDAY [facility] Last Admin: 08/21/17 09:31 Dose: 81 mg Bisacodyl (Dulcolax) 10 mg HI QDAY PRN PRN Reason: Constipation unrelieved by MOM Budesonide (Pulmicort) 1 mg IH Q12HRT [facility] Last Admin: 08/21/17 08:28 Dose: 0.5 mg Clonidine HCl (Catapres) 0.1 mg PO BID [facility] Last Admin: 08/21/17 09:30 Dose: 0.1 mg Enoxaparin Sodium (Lovenox) 40 mg SUB-Q QDAY [facility] Last Admin: 08/21/17 09:31 Dose: 40 mg Ferrous Gluconate (Fergon) 324 mg PO QDAY [facility] Last Admin: 08/21/17 09:31 Dose: 324 mg Fluoxetine HCl (Prozac) 20 mg PO QDAY [facility] Last Admin: 08/21/17 09:30 Dose: 20 mg Vancomycin HCl (Vancomycin/Ns 1 Gm/250 Ml) 1 gm in 250 mls @ 166.667 mls/hr IV Q24H [facility] Last Admin: 08/20/17 12:27 Dose: 166.667 mls/hr Piperacillin Sod/Tazobactam Sod (Zosyn/Ns 4.5gm/100ml) 4.5 gm in 100 mls @ 200 mls/hr IV Q8HR [facility] Last Admin: 08/21/17 05:19 Dose: 200 mls/hr Levothyroxine Sodium (Synthroid) 50 mcg PO QAM@0600 [facility] Last Admin: 08/21/17 05:19 Dose: 50 mcg Lisinopril (Zestril) 10 mg PO QDAY [facility] Last Admin: 08/21/17 09:31 Dose: 10 mg Loratadine (Claritin) 10 mg PO QDAY@1999 [facility] Last Admin: 08/20/17 21:35 Dose: 10 mg Magnesium Hydroxide (Milk Of Magnesia) 30 ml PO Q4H PRN PRN Reason: Constipation Montelukast Sodium (Singulair) 10 mg PO QPM [facility] Last Admin: 08/20/17 21:35 Dose: 10 mg Morphine Sulfate (Morphine) 2 mg IV Q4H PRN PRN Reason: Pain, Moderate (4-6) Multivitamins (Theragran Tab) 1 each PO DAILY [facility] Last Admin: 08/21/17 09:31 Dose: 1 each Nitroglycerin (Nitrostat) 0.4 mg SL PRN PRN PRN Reason: Angina Ondansetron HCl (Zofran) 4 mg IV Q8H PRN PRN Reason: N/V unrelieved by Reglan Oxycodone/Acetaminophen (Percocet 5/325) 1 tab PO Q6H PRN PRN Reason: Pain, Moderate (4-6) Pantoprazole Sodium (Protonix) 40 mg PO DAILY [facility] Last Admin: 08/21/17 09:30 Dose: 40 mg Pregabalin (Lyrica) 75 mg PO QDAY@1999 [facility] Last Admin: 08/20/17 21:36 Dose: 75 mg Vancomycin HCl (Vancomycin Pharmacy To Dose) 1 each IV PKCONSULT [facility] PRN Reason: Protocol Zolpidem Tartrate (Ambien) 5 mg PO QHS PRN PRN Reason: Insomnia Last Admin: 08/20/17 21:35 Dose: 5 mg Exam - Constitutional Vitals: Temp Pulse Resp BP Pulse Ox 98.3 F 68 18 145/71 98 08/21/17 04:13 08/21/17 09:31 08/21/17 04:13 08/21/17 09:31 08/21/17 04:13 Results - Labs CBC & Chem 7: 08/21/17 04:28 08/20/17 04:21 Labs: Laboratory Last Values WBC 6.8 K/mm3 (4.5-11.0) 08/21/17 04:28 RBC 4.29 M/mm3 (3.65-5.03) 08/21/17 04:28 Hgb 9.4 gm/dl (10.1-14.3) L 08/21/17 04:28 Hct 29.3 % (30.3-42.9) L D 08/21/17 04:28 MCV 68 fl (79-97) L 08/21/17 04:28 MCH 22 pg (28-32) L 08/21/17 04:28 MCHC 32 % (30-34) 08/21/17 04:28 RDW 16.1 % (13.2-15.2) H 08/21/17 04:28 Plt Count 209 K/mm3 (140-440) 08/21/17 04:28 Lymph % (Auto) 16.1 % (13.4-35.0) 08/21/17 04:28 [place] % (Auto) 12.8 % (0.0-7.3) H 08/21/17 04:28 Eos % (Auto) 2.8 % (0.0-4.3) 08/21/17 04:28 Baso % (Auto) 0.7 % (0.0-1.8) 08/21/17 04:28 Lymph # 1.1 K/mm3 (1.2-5.4) L 08/21/17 04:28 [place] # 0.9 K/mm3 (0.0-0.8) H 08/21/17 04:28 Eos # 0.2 K/mm3 (0.0-0.4) 08/21/17 04:28 Baso # 0.1 K/mm3 (0.0-0.1) 08/21/17 04:28 Seg Neutrophils % 67.6 % (40.0-70.0) 08/21/17 04:28 Seg Neutrophils # 4.6 K/mm3 (1.8-7.7) 08/21/17 04:28 Sodium 145 mmol/L (137-145) D 08/20/17 04:21 Potassium 3.7 mmol/L (3.6-5.0) 08/20/17 04:21 Chloride 107.5 mmol/L (98-107) H 08/20/17 04:21 Carbon Dioxide 24 mmol/L (22-30) 08/20/17 04:21 Anion Gap 17 mmol/L 08/20/17 04:21 BUN 24 mg/dL (7-17) H 08/20/17 04:21 Creatinine 0.8 mg/dL (0.7-1.2) D 08/20/17 04:21 Estimated GFR > 60 ml/min 08/20/17 04:21 BUN/Creatinine Ratio 30 % 08/20/17 04:21 Glucose 97 mg/dL (65-100) 08/20/17 04:21 Calcium 7.9 mg/dL (8.4-10.2) L 08/20/17 04:21 Iron 21 ug/dL (37-170) L 08/19/17 04:43 TIBC 150 mcg/dL (250-450) L 08/19/17 04:43 % Saturation 14.00 % 08/19/17 04:43 Transferrin 135 mg/dl (192-382) L 08/19/17 04:43 Total Bilirubin 0.70 mg/dL (0.1-1.2) 08/20/17 04:21 AST 22 units/L (5-40) 08/20/17 04:21 ALT 19 units/L (7-56) 08/20/17 04:21 Alkaline Phosphatase 76 units/L (35-129) 08/20/17 04:21 Troponin T < 0.010 ng/mL (0.00-0.029) 08/19/17 04:43 Total Protein 5.9 g/dL (6.3-8.2) L 08/20/17 04:21 Albumin 2.9 g/dL (3.9-5) L 08/20/17 04:21 Albumin/Globulin Ratio 1.0 % 08/20/17 04:21 Urine Color Yellow (Yellow) 08/18/17 Unknown Urine Turbidity Clear (Clear) 08/18/17 Unknown Urine pH 5.0 (5.0-7.0) 08/18/17 Unknown Ur Specific [place] 1.016 (1.003-1.030) 08/18/17 Unknown Urine Protein <15 mg/dl mg/dL (Negative) 08/18/17 Unknown Urine Glucose (UA) Neg mg/dL (Negative) 08/18/17 Unknown Urine Ketones Neg mg/dL (Negative) 08/18/17 Unknown Urine Blood Neg (Negative) 08/18/17 Unknown Urine Nitrite Neg (Negative) 08/18/17 Unknown Urine Bilirubin Neg (Negative) 08/18/17 Unknown Urine Urobilinogen < 2.0 mg/dL (<2.0) 08/18/17 Unknown Ur Leukocyte Esterase Neg (Negative) 08/18/17 Unknown Urine WBC (Auto) 2.0 /HPF (0.0-6.0) 08/18/17 Unknown Urine RBC (Auto) 6.0 /HPF (0.0-6.0) 08/18/17 Unknown Urine Bacteria (Auto) 1+ /HPF (Negative) 08/18/17 Unknown Blood Type O POSITIVE 08/19/17 01:03 Antibody Screen Negative 08/19/17 01:03 Crossmatch See Detail 08/19/17 01:03
--- NOTE | 2017-08-21 09:47 | Discharge Summary ---
<BLANCHE BRYANT - Last Filed: 08/21/17 14:40> Providers - Providers Date of Admission: 08/19/17 04:02 Date of discharge: 08/21/17 Attending physician: BERNARDO TIM Primary care physician: MICHELLE KIMBROUGH Hospitalization Reason for admission: Syncope Condition: Good Hospital course: Patient is a 62-year-old female with past medical history of COPD, high blood pressure ,hypothyroidism ,peripheral neuropathy , depression and gastroesophageal reflux disease comes in for passing out. Patient presented with syncope ACS was ruled out, stress test st thallium negative, negative cardiac enzymes, ECGs shows normal sinus rythm, CXR WNL. Echocardiogram with EF of 55%-60% with normal left ventricle diastolic filling.Carotid Doppler revealed 50-79% stenosis bilaterally. Patient refred to Vascular surgery to follow up as outpatient. Patient found to have low H&H 7.2/24.1. Patient passing out probably from anemia. She was transfused 1 unit PRBC. Patient was advised to follow up within a week of discharge with Dr. Valenzuela.She was treated with IV fluid hydration and antihypertensive medications. Patient is clinically improved and stable for discharge. Patient advised to follow-up with her primary care provider. Discharge Diagnosed Syncope due to Anemia Chest pain. Acute renal failure. Hypertension. Anemia. Asthma. Hypothyroidism. GERD. Peripheral neuropathy Disposition: DC-01 TO HOME OR SELFCARE Time spent for discharge: 33 minutes Core Measure Documentation - Palliative Care Palliative Care/ Comfort Measures: Not Applicable - Core Measures Any of the following diagnoses?: none Exam - Constitutional Vitals: Temp Pulse Resp BP Pulse Ox 98.3 F 68 18 145/71 98 08/21/17 04:13 08/21/17 09:31 08/21/17 04:13 08/21/17 09:31 08/21/17 04:13 General appearance: Present: no acute distress - EENT Eyes: Present: PERRL ENT: hearing intact - Neck Neck: Present: supple - Respiratory Respiratory effort: normal Respiratory: bilateral: CTA - Cardiovascular Rhythm: regular Heart Sounds: Present: S1 & S2 - Abdominal General gastrointestinal: Present: soft, non-tender - Integumentary Integumentary: Present: clear, warm, dry - Musculoskeletal Musculoskeletal: strength equal bilaterally - Psychiatric Psychiatric: appropriate mood/affect - Neurologic Neurologic: CNII-XII intact - Allied Health Allied health notes reviewed: nursing Plan Diet: low fat, low cholesterol, low salt Follow up with: HARINDER DAMON MD [Staff Physician] - 7 Days SHARRI URIBE MD [Staff Physician] - 7 Days HAILEY VALENZUELA MD [Staff Physician] - 7 Days RONALD CLEMENTE MD [Staff Physician] - 7 Days <BERNARDO TIM - Last Filed: 08/22/17 08:32> Providers - Providers Date of Admission: 08/19/17 04:02 Attending physician: BERNARDO TIM Primary care physician: MICHELLE KIMBROUGH Hospitalization Hospital course: I saw and evaluated the patient. I agree with the findings and the plan of care as documented in the Nurse Practitioner's~note, with the following corrections and additions. Exam - Constitutional Vitals: Temp Pulse Resp BP Pulse Ox 98.3 F 58 L 20 134/69 100 08/21/17 11:44 08/21/17 11:44 08/21/17 11:44 08/21/17 11:44 08/21/17 11:44
[2017-08-21] MEDS: VANCOMYCIN/NS 1 GM/250 ML 1 GM/250 ML BAG IV SCH (12:00)
[2017-08-21 12:16] VITALS: BP 134/69
--- NOTE | 2017-08-29 13:49 | Vascular Lab Report ---
CAROTID DUPLEX STUDY: RIGHT PSVEDV CCA PROX:[id number] CCA DIST:[id number] ICA PROX:8024 ICA MID:[id number] ICA DIST:[id number] ECA: 73 VERT: 41 15 LEFT PSVEDV CCA PROX:7223 CCA DIST:7019 ICA PROX:8928 ICA MID:[id number] ICA DIST:07563 ECA: 77 VERT: 75 24 REASON FOR EXAM: Syncope. COMMENTS ON THE RIGHT: Doppler frequency analysis is consistent with 50 to 79 percent diameter reduction of the internal carotid artery. Minimal amount of plaque is seen. The common carotid artery is patent. The external carotid artery is patent. The vertebral artery has antegrade flow. COMMENTS ON THE LEFT: Doppler frequency analysis is consistent with 50 to 79 percent diameter reduction of the internal carotid artery. Minimal amount of plaque is seen. The common carotid artery is patent. The external carotid artery is patent. The vertebral artery has antegrade flow. IMPRESSION: Based on Doppler frequency analysis, there is 50-79% bilateral internal carotid artery stenosis. However, there is only a minimal amount of plaque seen. Recommend followup repeat carotid artery duplex in 6-12 months.
== END 2017-08-21 12:00 | disposition home or self-care (01) | DRG 811 ==
LOC: ED 21:50 → 4A 08-19 04:02
PROVIDERS: ADMIT Internal Medicine; ATTEND Hospitalist
PROC: 3E0234Z Introduction of Serum, Toxoid and Vaccine into Muscle, Percutaneous Approach (ICD-10-PCS; principal; 2017-08-19)
PROC: 5A09357 Assistance with Respiratory Ventilation, Less than 24 Consecutive Hours, Continuous Positive Airway Pressure (ICD-10-PCS; 2017-08-19)
PROC: 30233N1 Transfusion of Nonautologous Red Blood Cells into Peripheral Vein, Percutaneous Approach (ICD-10-PCS; 2017-08-20)
DX: D50.0 Iron deficiency anemia secondary to blood loss (chronic) (principal); N17.0 Acute kidney failure with tubular necrosis; K21.9 Gastro-esophageal reflux disease without esophagitis; I10 Essential (primary) hypertension; J44.9 Chronic obstructive pulmonary disease, unspecified; E03.9 Hypothyroidism, unspecified; G62.9 Polyneuropathy, unspecified; F32.9 Major depressive disorder, single episode, unspecified; Z79.82 Long term (current) use of aspirin; Z23 Encounter for immunization; Z79.899 Other long term (current) drug therapy; Z90.49 Acquired absence of other specified parts of digestive tract; Z82.49 Family history of ischemic heart disease and other diseases of the circulatory system; I65.23 Occlusion and stenosis of bilateral carotid arteries
CPT/HCPCS: 36415; 70450; 71020; 72125; 76770; 78452; 80048; 80053; 81001; 82270; 82271; 82747; 83550; 84484; 85025; 86850; 86900; 86901; 86920; 90732; 93005; 93010; 93017; 93306; 93880; 94640; 94660; 96361; 96374; A9502; C9113; J1650; J2543; J2785; J3370; J7030; J7040; J7050; P9016

== ENCOUNTER 2017-10-01 07:51 | Outpatient (CLI) | payer MEDICAID ==
--- NOTE | 2017-10-01 08:59 | Cat Scan Report ---
CTA NECK: HISTORY: Occlusion and stenosis of bilateral carotid arteries. TECHNIQUE: Helical CT following IV contrast. Sagittal and coronal reformatted images. 3D volume rendering technique. Stenosis was calculated using NASCET criteria. FINDINGS: The visualized aortic arch, innominate artery and proximal bilateral subclavian arteries are widely patent with less than 20% stenosis. Within the right carotid system: No significant atherosclerotic plaques are identified. There is less than 20% stenosis throughout the right carotid system. Within the left carotid system: No significant atherosclerotic plaques are identified. There is less than 20% stenosis throughout the left carotid system. The cervical vertebral arteries are patent with less than 20% stenosis. The vertebral arteries are codominant. IMPRESSION: Unremarkable CTA of the neck. No significant atherosclerotic disease or hemodynamically significant stenosis.
== END 2017-10-01 07:52 | disposition home or self-care (01) ==
LOC: CT 07:51
PROVIDERS: ATTEND Surgery Vascular Surgery
DX: I65.23 Occlusion and stenosis of bilateral carotid arteries (principal)
CPT/HCPCS: 70498; Q9967

== ENCOUNTER 2018-09-17 09:53 | Outpatient (CLI) | payer MEDICAID ==
--- NOTE | 2018-09-17 10:49 | Ultrasound Report ---
ULTRASOUND ABDOMEN COMPLETE: TECHNIQUE: Transabdominal ultrasound with color Doppler interrogation. HISTORY: For liver or spleen size. Patient has duyptrens contracture. COMPARISON: none. FINDINGS: LIVER: Normal. BILIARY SYSTEM: Cholecystectomy changes. No biliary dilatation. The CBD measures 2 mm. PANCREAS: Normal. SPLEEN: Normal. 11.3 cm in length. KIDNEYS: Normal. AORTA/IVC: Normal. ASCITES: None. IMPRESSION: Unremarkable exam.
== END 2018-09-17 09:54 | disposition home or self-care (01) ==
LOC: US 09:53
PROVIDERS: ATTEND Internal Medicine Hematology & Oncology
DX: D86.9 Sarcoidosis, unspecified (principal); D63.1 Anemia in chronic kidney disease; K21.9 Gastro-esophageal reflux disease without esophagitis; E03.9 Hypothyroidism, unspecified; I10 Essential (primary) hypertension; Z90.49 Acquired absence of other specified parts of digestive tract; Z90.710 Acquired absence of both cervix and uterus
CPT/HCPCS: 76700